=== PATIENT | male | born 1945 | race Caucasian/White ===

== ENCOUNTER 2019-06-07 16:30 | Outpatient (RCR) | payer MEDICARE, SELFPAY ==
[2019-05-16 11:34] VITALS: BP 122/60; PULSE 80; O2SAT 97
[2019-05-16 12:21] VITALS: PULSE 78
--- NOTE | 2019-06-11 12:19 | PCCPR ---
ZAIRA CALLED THIS MORNING CONCERNED ABOUT COMING DUE TO CORONAVIRUS OUTBREAK. ZAIRA WAS UNSURE WHEN HE WOULD RETURN, SAYING THAT IT MAY BE MONTHS BEFORE HE RETURNED. ZAIRA DISCHARGED FROM PROGRAM.
== END 2019-06-12 14:24 | disposition home or self-care (01) ==
LOC: ANHCPREHAB 16:30
PROVIDERS: PCP Internal Medicine
DX: I50.89 Other heart failure (principal)
CPT/HCPCS: 93798